=== PATIENT | male | born 1945 | race Caucasian/White ===

== ENCOUNTER → 2017-05-01 | Outpatient (CLI) | payer MEDICARE ==
--- NOTE | ~2017-05-01 | CR173 ---
[facility] A Service of [facility] RADIOLOGY TEXT RESULTS PATIENT: RAJAT MCLAIN LOCATION: [facility] : 43 UNIT #: [id number] AGE: [address]: RADHA FAIRBANKS APRN SEX: M ORDER DR: [id number] [place] [id number] O MR#: [id number] Acc #: [id number] NAME: RAJAT MCLAIN : 1945 SEX: M STUDY DATE/TIME: 05/01/2017 8:37 UNIT: SRAD ROOM: STUDY DESCRIPTION: CR Knee 3 Views Rt Attending Physician: Radha Fairbanks Aprn Referring Physician: Radha Fairbanks Aprn Ordering Physician: Radha Fairbanks Aprn Primary Care Physician: Radha Fairbanks Aprn MEDICAL IMAGING REPORT This report is preliminary unless electronic signature is present. EXAM 3 views of the right knee. DATE 05/01/2017 HISTORY Right knee pain which began 1 month ago, pain greatest in the back of the knee. No known injury. COMPARISON None. FINDINGS No fracture. No dislocation. Moderate narrowing of the medial compartment with marginal osteophyte formation. Patellofemoral and lateral compartment spaces appear preserved. No definite joint effusion. IMPRESSION 1. 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 2. No acute osseous abnormality. Dictated by... Gloria Genao M.D. THIS IS AN ELECTRONICALLY VERIFIED REPORT Gloria Genao M.D. at 05/02/2017 11:56 AM [place] TD: 05/01/2017 16:59 JOB #: [id number] [facility] A Service [facility] RADIOLOGY TEXT RESULTS PATIENT: RAJAT MCLAIN LOCATION: [facility] : 43 UNIT #: [id number] AGE: [address]: RADHA FAIRBANKS APRN SEX: M ORDER DR: MEDICAL IMAGING REPORT Page 1 of 1
== END | disposition home or self-care (01) ==
LOC: SRAD 08:35
DX: M25.561 Pain in right knee (principal); M17.11 Unilateral primary osteoarthritis, right knee
CPT/HCPCS: 73562